=== PATIENT | male | born 1995 | race African-American/Black ===

== ENCOUNTER 2016-10-01 09:27 | Emergency (ER) | payer MEDICAID ==
[~2016-10-01] VITALS: Ht 180.3 cm; Wt 111.5 kg
[~2016-10-01 09:27] MED LIST: CODE118S2 PO
[2016-10-01 09:30] VITALS: BP 127/73
== END 2016-10-01 11:05 | disposition home or self-care (01) ==
LOC: ER 09:50
DX: R05 Cough (principal)
CPT/HCPCS: 99282

== ENCOUNTER 2018-09-19 08:06 | Emergency (ER) | payer MEDICAID ==
[~2018-09-19] VITALS: Ht 177.8 cm; Wt 113.0 kg
[2018-09-19 09:58] VITALS: BP 116/69
[2018-09-19] MEDS ORDERED: ACETAMINOPHEN 500MG TABLET PO ONE (10:00)
[2018-09-19] MEDS ORDERED: IBUPROFEN 600MG TABLET PO ONE (10:00)
== END 2018-09-19 10:05 | disposition home or self-care (01) ==
LOC: ER 08:06
DX: K02.9 Dental caries, unspecified (principal); J06.9 Acute upper respiratory infection, unspecified; F12.10 Cannabis abuse, uncomplicated
CPT/HCPCS: 99283

== ENCOUNTER 2018-10-03 09:25 | Emergency (ER) | payer MEDICAID ==
[~2018-10-03] VITALS: Ht 172.7 cm; Wt 117.0 kg
[2018-10-03] MEDS ORDERED: IBUPROFEN 600MG TABLET PO ONE (10:00)
[2018-10-03 10:13] VITALS: BP 147/77
== END 2018-10-03 10:16 | disposition home or self-care (01) ==
LOC: ER 09:25
DX: S50.861A Insect bite (nonvenomous) of right forearm, initial encounter (principal); F12.10 Cannabis abuse, uncomplicated; W57.XXXA Bitten or stung by nonvenomous insect and other nonvenomous arthropods, initial encounter; Y93.89 Activity, other specified; Y92.89 Other specified places as the place of occurrence of the external cause
CPT/HCPCS: 99282

== ENCOUNTER 2018-10-07 13:38 | Emergency (ER) | payer MEDICAID ==
[~2018-10-07] VITALS: Ht 177.8 cm; Wt 114.0 kg
[2018-10-07] MEDS ORDERED: KETOROLAC 30MG/ML VIAL IM ONE (15:45)
[2018-10-07 15:57] VITALS: BP 133/81
== END 2018-10-07 17:24 | disposition home or self-care (01) ==
LOC: ER 13:38
DX: S06.0X0A Concussion without loss of consciousness, initial encounter (principal); S00.83XA Contusion of other part of head, initial encounter; F12.10 Cannabis abuse, uncomplicated; V49.49XA Driver injured in collision with other motor vehicles in traffic accident, initial encounter; Y93.89 Activity, other specified; Y92.89 Other specified places as the place of occurrence of the external cause; Y99.8 Other external cause status
CPT/HCPCS: 70450; 70486; 96372; 99284; J1885

== ENCOUNTER 2019-10-18 20:32 | Emergency (ER) | payer MEDICAID ==
[~2019-10-18] VITALS: Ht 177.8 cm; Wt 113.0 kg
[2019-10-18 20:43] VITALS: BP 148/71
== END 2019-10-18 21:54 | disposition left against medical advice (07) ==
LOC: ER 20:32
DX: Z53.21 Procedure and treatment not carried out due to patient leaving prior to being seen by health care provider (principal)

== ENCOUNTER 2019-12-23 05:34 | Emergency (ER) | payer MEDICAID ==
[~2019-12-23] VITALS: Ht 180.3 cm; Wt 113.0 kg
[2019-12-23] MEDS ORDERED: CEFTRIAXONE SODIUM 1 G/VIAL IM ONE (07:30)
[2019-12-23] MEDS ORDERED: BUPIVACAINE HCL/PF 0.25% (2.5MG/ML) 10ML INFIL ONE (07:30)
[2019-12-23] MEDS ORDERED: IBUPROFEN 600MG TABLET PO ONE (07:30)
[2019-12-23] MEDS ORDERED: LIDOCAINE HCL/EPINEPHRINE 1%-EPI 1:100,000 30 ML VIAL INFIL ONE (07:45)
[2019-12-23] MEDS ORDERED: LIDOCAINE HCL/EPINEPHRINE 1%-EPI 1:100,000 20 ML VIAL INFIL SCH (08:30)
[2019-12-23 08:36] VITALS: BP 141/68
== END 2019-12-23 08:37 | disposition home or self-care (01) ==
LOC: ER 05:34
DX: K04.7 Periapical abscess without sinus (principal); F12.10 Cannabis abuse, uncomplicated
CPT/HCPCS: 41800; 96372; 99283; J0696; J3490; 90471